=== PATIENT | female | born 1970 | race Two or more races ===

== ENCOUNTER 2020-06-24 06:40 | Emergency (ER) | payer BC ==
[~2020-06-24] VITALS: Ht 154.9 cm; Wt 68.9 kg
[2020-06-24] MEDS ORDERED: SODIUM CHLORIDE 0.9% 1,000 ML IV ONE (07:45)
[2020-06-24 08:38] LABS: Albumin 3.8 g/dL (3.4-5.0); Anion Gap 9 (5-15); Blood Urea Nitrogen 9 mg/dL (7-18); Calcium 8.8 mg/dL (8.5-10.1); Carbon Dioxide 24 mmol/L (21-32); Chloride 106 mmol/L (98-107); Glucose 106 mg/dL (74-106); Potassium 3.2 mmol/L (3.5-5.1); Sodium 139 mmol/L (136-145)
[2020-06-24 08:46] LABS: Alanine Aminotransferase 16 U/L (13-56); Alkaline Phosphatase 100 U/L (45-117); Aspartate Aminotransferase 14 U/L (15-37); BUN/Creatinine Ratio 13.6; Bilirubin, Total 0.3 mg/dL (0.2-1.0); GFR African American 121 mL/min; GFR Non-African American 100 mL/min; Total Protein 7.7 g/dL (6.4-8.2)
[2020-06-24 09:39] LABS: Basophils # (auto) 0.1 10 ^3/uL (0-0.2); Basophils % (auto) 0.6 % (0.0-2.0); Eosinophils # (auto) 0 10 ^3/uL (0-0.8); Eosinophils % (auto) 0.2 % (0.0-7.0); Mean Corpuscular Hemoglobin 21.2 pg (28.0-32.0); Monocytes # (auto) 0.8 10 ^3/uL (0-1.3)
[2020-06-24 09:40] LABS: Hematocrit 37.6 % (36.0-46.0); Hemoglobin 11.2 g/dL (12.2-16.2); Lymphocytes # (auto) 2.2 10 ^3/uL (0.4-5.4); Lymphocytes % (auto) 20.4 % (10.0-50.0); Mean Corpuscular Hgb Conc. 29.9 g/dL (32.0-36.0); Neutrophils # (auto) 7.8 10 ^3/uL (1.6-8.6); Neutrophils % (auto) 71.8 % (37.0-80.0); Platelet Count (auto) 651 10^3/uL (140-450); Red Blood Cells 5.29 10^6/uL (4.0-5.20); Red Cell Distribution Width 20.8 % (11.8-14.3); White Blood Cell 10.8 10^3/uL (4.4-10.8)
[2020-06-24 15:41] VITALS: BP 135/89
== END 2020-06-24 15:48 | disposition home or self-care (01) ==
LOC: ER 06:40
DX: R42 Dizziness and giddiness (principal); I10 Essential (primary) hypertension
CPT/HCPCS: 36415; 70450; 71045; 80053; 84484; 85025